=== PATIENT | male | born 1970 | race Caucasian/White ===

== ENCOUNTER → 2024-07-29 08:39 | Outpatient (REF) | payer BC, SELFPAY ==
[2024-07-29 11:05] LABS: ALT (SGPT) 108 U/L (0-50); AST (SGOT) 80 U/L (17-59); Albumin 5.1 g/dl (3.5-5.0); Alkaline Phosphatase 66 U/L (38-126); Blood Urea Nitrogen 20 mg/dl (9-20); Calcium 10.3 mg/dl (8.4-10.2); Carbon Dioxide 21 mmol/L (22-30); Chloride 100 mmol/L (98-107); Glucose 117 mg/dl (70-99); HDL Cholesterol 39 mg/dl; LDL Cholesterol, Calculated 91 mg/dl; Potassium 4.5 mmol/L (3.5-5.1); Sodium 139 mmol/L (135-145); Total Bilirubin 1.7 mg/dl (0.2-1.3); Total Cholesterol 162 mg/dl (50-199); Total Protein 7.7 g/dl (6.3-8.2); Triglyceride 164 mg/dl (10-149); Very Low Density Lipoprotein 32 mg/dl (0-30); eGFR > 60.00
[2024-07-29 11:18] LABS: Vitamin D, 25-OH*** 47.4 ng/mL (30-80)
[2024-07-29 12:05] LABS: Glycohemoglobin (HgbA1c) 5.7 % (4.0-5.6)
== END ==
LOC: REG 08:39
PROVIDERS: ATTENDING PHYSICIAN Internal Medicine
DX: Z00.00 Encounter for general adult medical examination without abnormal findings (principal); Z29.9 Encounter for prophylactic measures, unspecified; E78.5 Hyperlipidemia, unspecified; R73.01 Impaired fasting glucose
CPT/HCPCS: 36415; 80053; 80061; 82306; 83036

== ENCOUNTER → 2024-12-30 08:10 | Outpatient (REF) | payer BC, SELFPAY ==
[2024-12-30 09:48] LABS: ALT (SGPT) 134 U/L (0-50); AST (SGOT) 91 U/L (17-59); Albumin 5.1 g/dl (3.5-5.0); Alkaline Phosphatase 78 U/L (38-126); Blood Urea Nitrogen 16 mg/dl (9-20); Calcium 10.3 mg/dl (8.4-10.2); Carbon Dioxide 27 mmol/L (22-30); Chloride 99 mmol/L (98-107); Glucose 130 mg/dl (70-99); HDL Cholesterol 37 mg/dl; LDL Cholesterol, Calculated 89 mg/dl; Potassium 4.9 mmol/L (3.5-5.1); Sodium 138 mmol/L (135-145); Total Bilirubin 1.6 mg/dl (0.2-1.3); Total Cholesterol 152 mg/dl (50-199); Total Protein 7.7 g/dl (6.3-8.2); Triglyceride 130 mg/dl (10-149); Very Low Density Lipoprotein 26 mg/dl (0-30); eGFR > 60.00
[2024-12-30 09:49] LABS: % Basophils 0.8 % (0-2); % Eosinophils 4.1 % (0-6); % Immature Granulocytes 1.1 % (0-0.5); % Lymphocytes 20.4 % (20.5-51.1); % Monocytes 12.1 % (1.7-9.3); % Neutrophils 61.5 % (42.2-75.2); Absolute Basophils 0.1 10^3/uL (0-0.2); Absolute Eosinophils 0.3 10^3/uL (0-0.7); Absolute Immature Granulocytes 0.1 10^3/uL (0-0.05); Absolute Lymphocytes 1.3 10^3/uL (1.2-3.4); Absolute Monocytes 0.7 10^3/uL (0.1-0.6); Absolute Neutrophils 3.8 10^3/uL (1.4-6.5); Hematocrit 46.5 % (39.0-52.0); Hemoglobin 16.2 g/dL (13.0-18.0); Mean Corp Hgb Conc. 34.8 g/dL (33.0-37.0); Mean Corpuscular Hgb 29.6 pg (27.0-31.0); Mean Corpuscular Volume 84.9 fL (80.0-94.0); Mean Platelet Volume 10.2 fL (7.4-10.4); Nucleated Red Blood Cells % 0 % (-); Platelet Count 162 10^3/uL (130-400); Red Blood Cell Count 5.48 10^6/uL (4.70-6.10); Red Cell Dist. Width 13.2 % (11.5-14.5); White Blood Cell Count 6.1 10^3/uL (4.8-10.8)
[2024-12-30 10:16] LABS: PSA, Total - Screen 3.32 ng/ml (0.0-4.0)
[2024-12-30 12:15] LABS: Glycohemoglobin (HgbA1c) 6.2 % (4.0-5.6)
== END ==
LOC: REG 08:10
PROVIDERS: ATTENDING PHYSICIAN Internal Medicine
DX: I10 Essential (primary) hypertension (principal); E78.5 Hyperlipidemia, unspecified; R73.01 Impaired fasting glucose; Z12.5 Encounter for screening for malignant neoplasm of prostate; K76.0 Fatty (change of) liver, not elsewhere classified; Z00.00 Encounter for general adult medical examination without abnormal findings
CPT/HCPCS: 36415; 80053; 80061; 83036; 84443; 85025; G0103

== ENCOUNTER → 2025-01-12 14:00 | Outpatient (REF) | payer BC, SELFPAY | LOC: HWRAD 14:00 | PROVIDERS: ATTENDING PHYSICIAN Internal Medicine | DX: M25.562 Pain in left knee (principal) | CPT/HCPCS: 73564 ==

== ENCOUNTER → 2025-02-01 14:55 | Outpatient (REF) | payer BC, SELFPAY | LOC: HWRAD 14:55 | PROVIDERS: ATTENDING PHYSICIAN Internal Medicine | DX: I10 Essential (primary) hypertension (principal); E78.5 Hyperlipidemia, unspecified | CPT/HCPCS: 76770 ==

== ENCOUNTER → 2025-04-04 13:48 | Outpatient (REF) | payer BC, SELFPAY ==
[2025-04-04 15:19] LABS: Calcium 10.2 mg/dl (8.4-10.2); Uric Acid 5.8 mg/dl (3.5-8.5)
== END ==
LOC: REG 13:48
PROVIDERS: ATTENDING PHYSICIAN Urology; FAMILY PHYSICIAN Internal Medicine
DX: N20.0 Calculus of kidney (principal)
CPT/HCPCS: 36415; 83970; 84550

== ENCOUNTER → 2025-04-21 08:35 | Outpatient (REF) | payer BC, SELFPAY ==
[2025-04-21 09:25] LABS: 24 Hour Urine Total Volume 2050 ml
[2025-04-21 09:29] LABS: Osmolality 24 Hour Urine 562 mOsm/kg (300-900)
[2025-04-21 11:04] LABS: 24 Hour Urine Creatinine 2.394 gm/day (1.0-2.0); Urine Potassium 37.7 mmol/L (30-90); Urine Sodium 114 mmol/L (30-90)
[2025-04-21 12:34] LABS: Urine Uric Acid 44.4 mg/dl
[2025-04-21 13:13] LABS: 24 Hour Urine Calcium 137.3 mg/day; Urine Calcium 6.7 mg/dl
[2025-04-23 17:31] LABS: 24 Hour Urine Total Volume 2050 mL; Creatinine, Urine 24 Hour 2460 mg/d (800-2100); Creatinine, Urine per Volume 120 mg/dL; Oxalate, Urine 21 mg/L; Oxalate, Urine 24 Hr 43 mg/d (16-49); Urine Collection Length 24 hr
== END ==
LOC: REG 08:35
PROVIDERS: ATTENDING PHYSICIAN Urology; FAMILY PHYSICIAN Internal Medicine
DX: N20.0 Calculus of kidney (principal)
CPT/HCPCS: 81050; 82340; 82570; 83935; 83945; 84133; 84300; 84560

== ENCOUNTER → 2025-09-04 09:37 | Outpatient (REF) | payer BC, SELFPAY ==
[2025-09-04 12:57] LABS: Glycohemoglobin (HgbA1c) 5.3 % (4.0-5.6)
[2025-09-04 13:14] LABS: ALT (SGPT) 48 U/L (0-50); AST (SGOT) 44 U/L (17-59); Albumin 5.0 g/dl (3.5-5.0); Alkaline Phosphatase 57 U/L (38-126); Blood Urea Nitrogen 16 mg/dl (9-20); Calcium 9.9 mg/dl (8.4-10.2); Carbon Dioxide 26 mmol/L (22-30); Chloride 104 mmol/L (98-107); Glucose 125 mg/dl (70-99); Potassium 4.3 mmol/L (3.5-5.1); Sodium 137 mmol/L (135-145); Total Protein 7.6 g/dl (6.3-8.2); eGFR > 60.00
== END ==
LOC: HWLAB 09:37
PROVIDERS: ATTENDING PHYSICIAN Internal Medicine
DX: I10 Essential (primary) hypertension (principal); K76.0 Fatty (change of) liver, not elsewhere classified; R73.01 Impaired fasting glucose
CPT/HCPCS: 36415; 80053; 83036